=== PATIENT | male | born 1995 ===

== ENCOUNTER 2024-12-27 15:32 | Emergency (ER) | payer OTHER ==
[~2024-12-27] VITALS: Ht 175.3 cm; Wt 72.6 kg
== END 2024-12-27 18:05 | disposition home or self-care (01) ==
LOC: ER 15:32
DX: S46.001A Unspecified injury of muscle(s) and tendon(s) of the rotator cuff of right shoulder, initial encounter (principal); W01.0XXA Fall on same level from slipping, tripping and stumbling without subsequent striking against object, initial encounter
CPT/HCPCS: 73030; 99283-25